=== PATIENT | female | born 1940 | race Caucasian/White ===

== ENCOUNTER 2016-07-09 11:22 | Inpatient (IN) | payer OTHER ==
[~2016-07-09] VITALS: Ht 167.6 cm; Wt 58.5 kg
[~2016-07-09 11:22] MED LIST: ASPIR-LOW81 MG PO; B COMPLETE1 EACH PO; CALCIUM 600 +1 EAC7 PO; FISH OIL300 MG PO; FLONASE ALLERG9.9 ML BOTH NARES; FLONASE16 G1 BOTH NARES; FLUDROCORTISON0.1 M1 PO; IRON18 MG PO; MECLIZINE HCL12.5 M1 PO; MECLIZINE HCL25 MG PO; METOPROLOL SUCC25 MG PO; MULTIVITAMIN1 EAC2 PO; RECLAST5 MG/100 M IV; ST. JOSEPH ASPI81 MG PO; VITAMIN E100 UNIT PO
[2016-07-09 11:50] LABS: EOSINOPHIL (%) 3.2 % (0-5); EOSINOPHIL COUNT 0.2 K/uL (0-0.3); HEMATOCRIT 35.1 % (36.0-46.0); IMMATURE GRANULOCYTE (%) 0.2 % (0.0-0.7); IMMATURE GRANULOCYTE COUNT 0.1 K/uL; LYMPHOCYTE COUNT 1.7 K/uL (1.0-2.8); MCH 30.9 PG (29.0-34.0); MCHC 34.5 G/DL (30.0-36.0); MCV 89.8 FL (83-99); MEAN PLAT.VOLUME 9.6 uM^3 (9.5-12.4); MONOCYTE (%) 6.3 % (3-12); MONOCYTE COUNT 0.4 K/uL (0-0.8); NEUTROPHIL (%) 63.5 % (45-76); NEUTROPHIL COUNT 4.1 K/uL (1.8-6.4); PLATELET COUNT 166 K/uL (156-360); RBC DIS.WIDTH-CV 12.8 % (11.8-14.6); RBC DIS.WIDTH-SD 41.3 % (39-53); RED BLOOD COUNT 3.91 M/uL (3.80-5.20); WHITE BLOOD COUNT 6.5 K/uL (4.1-10.2)
[2016-07-09 12:00] LABS: AMYLASE 68 IU/L (1-118); CHLORIDE 106 mEq/L (99-109); POTASSIUM 3.8 mEq/L (3.7-5.4); SODIUM 140 mEq/L (136-147)
[2016-07-09 12:02] LABS: GLUCOSE 98 mg/dL (70-99)
[2016-07-09 12:03] LABS: ANION GAP 12 MEQ/L (2-14)
[2016-07-09 12:05] LABS: SERUM ETHYL ALCOHOL < 10 mg/dL
[2016-07-09 12:06] LABS: GFR ESTIMATE (CALCULATED) > 59 mL/min/; UREA NITROGEN (BUN) 22 mg/dL (9-23)
[2016-07-09 12:09] LABS: LIPASE 25 U/L (1.0-51.0)
[2016-07-09 12:10] LABS: TROP-I INTERPRETATION NEGATIVE; TROPONIN-I < 0.01 ng/mL (0.0-0.30)
[2016-07-09 12:17] LABS: PROTHROMBIN TIME 10.5 (9.2-11.2); PTT 30.5 (25-32)
[2016-07-09 12:21] LABS: ADD MIUA? NO; BILIRUBIN NEGATIVE; BLOOD NEGATIVE; COLOR YELLOW ((YELLOW)); GLUCOSE (STRIP) NEGATIVE; KETONES NEGATIVE; LEUKOCYTES NEGATIVE; NITRITE NEGATIVE; PROTEIN (STRIP) NEGATIVE; SPECIFIC GRAVITY 1.012 (1.000-1.030); UCUL ADDED? NO; UROBILINOGEN 0.2 MG/DL (0.2-1.0)
[2016-07-09 13:05] LABS: AMPHETAMINE NEGATIVE (500 ng/mL); BARBITURATES NEGATIVE (200 ng/mL); BENZODIAZEPINES NEGATIVE (150 ng/mL); COCAINE NEGATIVE (150 ng/mL); INTERNAL CONTROLS VALID? YES; METHADONE NEGATIVE (200 ng/mL); METHAMPHETAMINE NEGATIVE (500 ng/mL); OPIATES (MORPHINE) NEGATIVE (100 ng/mL); OXYCODONE NEGATIVE (100 ng/mL); PHENCYCLIDINE NEGATIVE (25 ng/mL); PROPOXYPHENE NEGATIVE (300 ng/mL); THC CANNABINOIDS NEGATIVE (50 ng/mL); TRICYCLIC ANTIDEPRESSANTS NEGATIVE (300 ng/mL)
[2016-07-09] MEDS ORDERED: B-121000 MC2 PO (17:25)
[2016-07-09] MEDS ORDERED: XARELTO15 MG PO (17:29)
[2016-07-09 20:20] VITALS: BP 119/62
[2016-07-09 20:42] LABS: TROP-I INTERPRETATION NEGATIVE; TROPONIN-I < 0.01 ng/mL (0.0-0.30)
[2016-07-10 04:15] LABS: FASTING STATUS FASTING
[2016-07-10 04:17] VITALS: BP 106/64
[2016-07-10 04:17] LABS: MCH 30.2 PG (29.0-34.0); MCHC 33.1 G/DL (30.0-36.0); MCV 91.2 FL (83-99); MEAN PLAT.VOLUME 9.5 uM^3 (9.5-12.4); PLATELET COUNT 152 K/uL (156-360); RBC DIS.WIDTH-CV 12.9 % (11.8-14.6); RBC DIS.WIDTH-SD 41.7 % (39-53); RED BLOOD COUNT 3.51 M/uL (3.80-5.20); WHITE BLOOD COUNT 5.5 K/uL (4.1-10.2)
[2016-07-10 04:29] LABS: CHLORIDE 111 mEq/L (99-109); SODIUM 140 mEq/L (136-147)
[2016-07-10 04:31] LABS: GLUCOSE 90 mg/dL (70-99)
[2016-07-10 04:33] LABS: ANION GAP 7 MEQ/L (2-14)
[2016-07-10 04:35] LABS: ALKALINE PHOSPHATASE 58 IU/L (3-129); GFR ESTIMATE (CALCULATED) > 59 mL/min/
[2016-07-10 04:36] LABS: UREA NITROGEN (BUN) 17 mg/dL (9-23)
[2016-07-10 04:44] LABS: TROP-I INTERPRETATION NEGATIVE; TROPONIN-I < 0.01 ng/mL (0.0-0.30)
[2016-07-10 05:25] LABS: HDL CHOLESTEROL 53 MG/DL (Desirable>=50); LDL CHOLESTEROL 111 mg/dL (Desirable<100); NON-HDL CHOLESTEROL 125 mg/dL (Desirable<160); TOTAL CHOLESTEROL 178 mg/dL (Desirable<200); TRIGLYCERIDES 72 MG/DL (Normal: <150)
[2016-07-10 07:33] LABS: Estimated Average Glucose 108 mg/dL (70-123); HEMOGLOBIN A1c (GLYCOHEMOGLOB) 5.4 % HGB (Below 5.7)
[2016-07-10 08:30] VITALS: BP 97/49
[2016-07-10 11:47] VITALS: BP 116/56
[2016-07-10 15:09] VITALS: BP 124/80
[2016-07-10 19:59] VITALS: BP 109/55
[2016-07-10 23:57] VITALS: BP 114/52
[2016-07-11 04:25] VITALS: BP 121/59
[2016-07-11 06:58] LABS: HEMATOCRIT 31.4 % (36.0-46.0); MCH 30.5 PG (29.0-34.0); MCHC 33.4 G/DL (30.0-36.0); MCV 91.3 FL (83-99); MEAN PLAT.VOLUME 10.3 uM^3 (9.5-12.4); PLATELET COUNT 152 K/uL (156-360); RBC DIS.WIDTH-CV 13.2 % (11.8-14.6); RBC DIS.WIDTH-SD 43.7 % (39-53); RED BLOOD COUNT 3.44 M/uL (3.80-5.20); WHITE BLOOD COUNT 5.3 K/uL (4.1-10.2)
[2016-07-11 07:27] LABS: ALKALINE PHOSPHATASE 52 IU/L (3-129); ANION GAP 4 MEQ/L (2-14); CHLORIDE 111 MEQ/L (99-109); GFR ESTIMATE (CALCULATED) > 59 mL/min/; GLUCOSE 89 mg/dL (70-99); POTASSIUM 4.2 MEQ/L (3.7-5.4); SAMPLE HEMOLYSIS CHECK 0; SAMPLE ICTERIC CHECK 0; SAMPLE LIPEMIA CHECK 0; SODIUM 141 MEQ/L (136-147); UREA NITROGEN (BUN) 16 mg/dL (9-23)
[2016-07-11 08:41] VITALS: BP 112/53
[2016-07-11] MEDS ORDERED: ATORVASTATIN CA10 MG PO (09:12)
== END 2016-07-11 12:04 | disposition home or self-care (01) | DRG 69 ==
LOC: EME → EDBD 11:22 → EDOF 15:39 → 5SOUTH 19:38
PROVIDERS: Emergency Medicine; Internal Medicine
DX: G45.9 Transient cerebral ischemic attack, unspecified (principal); R25.1 Tremor, unspecified; I48.0 Paroxysmal atrial fibrillation; D64.9 Anemia, unspecified
CPT/HCPCS: 70450; 70496; 70498; 70551; 80048; 80053; 80061; 81003; 82150; 83036; 83690; 84443; 84484; 85025; 85027; 85610; 85730; 86850; 86900; 86901; 93005; 99281; 99285; G0480; J7030

== ENCOUNTER 2017-09-28 11:55 | Observation (INO) | payer OTHER ==
[~2017-09-28] VITALS: Ht 167.6 cm; Wt 54.0 kg
[~2017-09-28 11:55] MED LIST changes: +ATORVASTATIN CA10 MG PO; +B-121000 MC2 PO; +CALCIUM 600 +1 EAC2 PO; -CALCIUM 600 +1 EAC7 PO; +XARELTO15 MG PO
[2017-09-28 12:25] LABS: BASOPHIL (%) 0.7 % (0-1); EOSINOPHIL (%) 3.1 % (0-5); EOSINOPHIL COUNT 0.2 K/uL (0-0.3); HEMATOCRIT 34.7 % (36.0-46.0); HEMOGLOBIN 11.9 G/DL (11.9-15.5); IMMATURE GRANULOCYTE (%) 0.4 % (0.0-0.7); LYMPHOCYTE (%) 28.8 % (15-42); LYMPHOCYTE COUNT 1.6 K/uL (1.0-2.8); MCH 31.2 PG (29.0-34.0); MCHC 34.3 G/DL (30.0-36.0); MCV 90.8 FL (83-99); MONOCYTE (%) 7.9 % (3-12); MONOCYTE COUNT 0.4 K/uL (0-0.8); NEUTROPHIL (%) 59.1 % (45-76); NEUTROPHIL COUNT 3.3 K/uL (1.8-6.4); PLATELET COUNT 179 K/uL (156-360); RBC DIS.WIDTH-CV 13.5 % (11.8-14.6); RBC DIS.WIDTH-SD 45.1 % (39-53); RED BLOOD COUNT 3.82 M/uL (3.80-5.20); WHITE BLOOD COUNT 5.6 K/uL (4.1-10.2)
[2017-09-28 12:38] LABS: CHLORIDE 107 mEq/L (99-109); POTASSIUM 4.2 mEq/L (3.7-5.4); SODIUM 141 mEq/L (136-147)
[2017-09-28 12:39] LABS: GLUCOSE 93 mg/dL (70-99)
[2017-09-28 12:43] LABS: CREATININE 0.8 mg/dL (0.6-1.3); GFR ESTIMATE (CALCULATED) > 59 mL/min/
[2017-09-28 12:44] LABS: UREA NITROGEN (BUN) 19 mg/dL (9-23)
[2017-09-28 12:52] LABS: TROP-I INTERPRETATION NEGATIVE; TROPONIN-I < 0.01 ng/mL (0.0-0.30)
[2017-09-28 12:53] LABS: PTT 34.7 SEC (25-37)
[2017-09-28 12:58] LABS: INTER. NORMALIZED RATIO 1.1
[2017-09-28 13:21] LABS: HDL CHOLESTEROL 57 MG/DL (Desirable>=50); LDL CHOLESTEROL 132 mg/dL (Desirable<100); NON-HDL CHOLESTEROL 168 mg/dL (Desirable<160); TOTAL CHOLESTEROL 225 mg/dL (Desirable<200); TRIGLYCERIDES 179 MG/DL (Normal: <150)
[2017-09-28 14:54] LABS: HEMOGLOBIN A1c (GLYCOHEMOGLOB) 5.3 % (Below 5.7)
[2017-09-28] MEDS ORDERED: ELIQUIS5 MG PO (15:01)
[2017-09-28] MEDS ORDERED: BYSTOLIC2.5 MG PO (15:01)
[2017-09-28 19:37] LABS: TROP-I INTERPRETATION NEGATIVE; TROPONIN-I < 0.01 ng/mL (0.0-0.30)
[2017-09-28 19:41] VITALS: BP 145/65
[2017-09-28 23:56] VITALS: BP 117/57
[2017-09-29 01:17] LABS: TROP-I INTERPRETATION NEGATIVE; TROPONIN-I < 0.01 ng/mL (0.0-0.30)
[2017-09-29 03:30] VITALS: BP 92/53
[2017-09-29 08:10] VITALS: BP 93/50
[2017-09-29 11:04] VITALS: BP 140/70
[2017-09-29 11:07] VITALS: BP 116/58
[2017-09-29] MEDS ORDERED: XANAX0.25 MG PO (15:11)
== END 2017-09-29 16:47 | disposition home or self-care (01) ==
LOC: EME → EDBD 11:55 → EDOF 14:10 → 5WEST 14:10 → ENRESERV 14:26 → EDOF 14:29 → ENRESERV 16:28 → 5WEST 19:36
PROVIDERS: Emergency Medicine; Internal Medicine
DX: G44.009 Cluster headache syndrome, unspecified, not intractable (principal); Z86.73 Personal history of transient ischemic attack (TIA), and cerebral infarction without residual deficits; I48.0 Paroxysmal atrial fibrillation; Z79.01 Long term (current) use of anticoagulants; I35.0 Nonrheumatic aortic (valve) stenosis; M81.0 Age-related osteoporosis without current pathological fracture; Z88.0 Allergy status to penicillin; Z88.8 Allergy status to other drugs, medicaments and biological substances; Z66 Do not resuscitate; Z82.5 Family history of asthma and other chronic lower respiratory diseases; Z80.3 Family history of malignant neoplasm of breast
CPT/HCPCS: 70450; 70551; 80048; 80061; 81003; 83036; 84484; 85025; 85610; 85730; 92523 GN; 93005; 93306; 93880; 99281; 99285; G0378